=== PATIENT | male | born 1960 | race Caucasian/White ===

== ENCOUNTER 2019-04-19 06:49 | Inpatient (IN) | payer MEDICAID ==
[~2019-04-19] VITALS: Ht 170.2 cm; Wt 81.6 kg
[2019-04-19] MEDS ORDERED: ASPIRIN 81 MG TAB.CHEW PO ONE (07:00)
[2019-04-19] MEDS ORDERED: ONDANSETRON PF 4 MG/2 ML VIAL. IV ONE (07:15)
--- NOTE | 2019-04-19 07:18 | PHYS DOC ---
Adult General Chief Complaint Chief Complaint: chest pain HPI HPI 58-year-old male presents with chest pain. Patient states that it started about one hour ago. He was sitting in a car at that time. The pain is a central stabbing chest pain 10 out of 10 without radiation. The patient denies shortness of breath or diaphoresis. He denies nausea or vomiting. The patient has a cardiac history with 3 heart attacks, stents placed, and a STACY. He states that the defibrillator is not going off. It has not gone off recently. He is from [place] and all of his care is outside of our system. He takes several medications, but does not have a list with him. The patient was drinking alcohol last night with his daughter. Review of Systems Review of Systems Constitutional: Denies fever or chills [] Eyes: Denies change in visual acuity, redness, or eye pain [] HENT: Denies nasal congestion or sore throat [] Respiratory: Denies cough or shortness of breath [] Cardiovascular: No additional information not addressed in HPI [] GI: Denies abdominal pain, nausea, vomiting, bloody stools or diarrhea [] : Denies dysuria or hematuria [] Musculoskeletal: Denies back pain or joint pain [] Integument: Denies rash or skin lesions [] Neurologic: Denies headache, focal weakness or sensory changes [] Endocrine: Denies polyuria or polydipsia [] All other systems were reviewed and found to be within normal limits, except as documented in this note. Current Medications Current Medications Current Medications Medications (Trade) Dose Ordered Sig/[facility] Start Time Stop Time Status Last Admin Dose Admin Aspirin (Children'S Aspirin) 324 mg 1X ONCE 04/19/19 07:00 04/19/19 07:01 UNV Morphine Sulfate (Morphine 2mg Syringe) 2 mg 1X ONCE 04/19/19 07:15 04/19/19 07:16 UNV Nitroglycerin (Nitrostat) 0.4 mg PRN Q5MIN PRN 04/19/19 07:15 04/20/19 07:14 UNV Ondansetron HCl (Zofran) 4 mg 1X ONCE 04/19/19 07:15 04/19/19 07:16 UNV Allergies Allergies Allergies Coded Allergies Type Severity Reaction Last Updated Verified No Known Drug Allergies 04/19/19 No Physical Exam Physical Exam Constitutional: Well developed, well nourished, mild acute distress, non-toxic appearance. [] HENT: Normocephalic, atraumatic, bilateral external ears normal, oropharynx moist, no oral exudates, nose normal. [] Eyes: PERRLA, EOMI, conjunctiva normal, no discharge. [] Neck: Normal range of motion, no tenderness, supple, no stridor. [] Cardiovascular:Heart rate regular rhythm, no murmur [] Lungs & Thorax: Bilateral breath sounds clear to auscultation [] Abdomen: Bowel sounds normal, soft, no tenderness, no masses, no pulsatile masses. [] Skin: Abrasion of the left little finger, dorsal MIP joint area. [] Back: No tenderness, no CVA tenderness. [] Extremities: No tenderness, no cyanosis, no clubbing, ROM intact, no edema. [] Neurologic: Alert and oriented X 3, normal motor function, normal sensory function, no focal deficits noted. [] Psychologic: Affect normal, judgement normal, mood normal. [] EKG EKG Sinus rhythm, rate 84, right axis, downsloping T waves in lead 1. Q waves in V2 through V6. No ST elevations or depressions.[] Radiology/Procedures Radiology/Procedures [] Impressions: PORTABLE CHEST 1V Clinical Indication: Chest pain Comparison: None. Findings: There is left chest dual-chamber ICD. Main pulmonary arteries are upper limits of normal. The cardiomediastinal silhouette is normal. Lungs are clear. There is no pneumothorax. No pleural effusion is appreciated. No acute bone abnormality. IMPRESSION: No acute cardiopulmonary process. Electronically signed by: Christian Soto MD (04/19/2019 7:33 AM) [id number] DICTATED AND SIGNED BY: CHRISTIAN SOTO MD DATE: 04/19/19 0733 CC: COLEMAN JAMESON DO; ANNELIESE BAUTISTA MD ~ Course & Med Decision Making Course & Med Decision Making Pertinent Labs and Imaging studies reviewed. (See chart for details) The patient is tightening his muscles causing him to have a forward jerking-type motion about every 15-20 seconds. He states that this is due to the pain in his chest. I have ordered aspirin, nitroglycerin, and morphine. His EKG does show Q waves in V2 through V6. The patient's heart score is 5. The nitroglycerin lower the patient's blood pressure and reduced his pain to an 8/10. The 2 mg of morphine improved his pain a 5 out of 10. He while later, the patient was able to fall asleep. I informed him of his results and told him it would be best for him to be admitted for further trending of his troponins. He is in agreement with this plan. I discussed the patient with Dr. Kee and he has accepted the patient for admission. [] Dragon Disclaimer Dragon Disclaimer This electronic medical record was generated, in whole or in part, using a voice recognition dictation system. The HEART Score for CP Pts HEART Score for Chest Pain: HEART Score for Chest Pain Response (Comments) Value History Moderately Suspicious 1 ECG Nonspecific Repolarizatio 1 Age >45 - < 65 1 Risk Factors >3 Risk Factors or Hx CAD 2 Troponin < Normal Limit 0 Total 5 Risk Factors: Risk Factors: DM, Current or recent (<one month) smoker, HTN, HLP, family history of CAD, obesity. Risk Scores: Score 0 - 3: 2.5% MACE over next 6 weeks - Discharge Home Score 4 - 6: 20.3% MACE over next 6 weeks - Admit for Clinical Observation Score 7 - 10: 72.7% MACE over next 6 weeks - Early Invasive Strategies Departure Departure: Impression: Primary Impression: Chest pain Disposition: ADMITTED INPATIENT Admitting Physician: Mikael Kee Condition: STABLE Referrals: ANNELIESE BAUTISTA MD (PCP) Problem Qualifiers Primary Impression: Chest pain Chest pain type: precordial pain Qualified Codes: R07.2 - Precordial pain COLEMAN JAMESON DO Apr 19, 2019 07:18
[2019-04-19] MEDS: NITROGLYCERIN SUBLINGUAL 0.4 MG BOTTLE OF 25. SL PRN ×2 (07:20→07:40)
[2019-04-19] MEDS ORDERED: MORPHINE SULFATE 2 MG/ML DISP.SYRIN. IV ONE (07:30)
--- NOTE | 2019-04-19 07:36 | RAD ---
PORTABLE CHEST 1V Clinical Indication: Chest pain Comparison: None. Findings: There is left chest dual-chamber ICD. Main pulmonary arteries are upper limits of normal. The cardiomediastinal silhouette is normal. Lungs are clear. There is no pneumothorax. No pleural effusion is appreciated. No acute bone abnormality. IMPRESSION: No acute cardiopulmonary process. Electronically signed by: Christian Soto MD (04/19/2019 7:33 AM) [id number]
[2019-04-19 08:14] LABS: BASO % 1 % (0-3); EOS # 0.1 x10^3/uL (0.0-0.7); EOS % 1 % (0-3); HEMATOCRIT 45.5 % (39.0-53.0); HEMOGLOBIN 14.9 g/dL (13.0-17.5); LYMPH # 0.9 x10^3/uL (1.0-4.8); LYMPH % 12 % (24-48); MEAN CORPUSCULAR HEMOGLOBIN 27 pg (25-35); MEAN CORPUSCULAR HGB CONC 33 g/dL (31-37); MEAN CORPUSCULAR VOLUME 82 fL (79-100); MONO # 0.6 x10^3/uL (0.0-1.1); MONO % 8 % (0-9); NEUT % 79 % (31-73); PLATELET COUNT 165 x10^3/uL (140-400); RED BLOOD COUNT 5.52 x10^6/uL (4.30-5.70); RED CELL DISTRIBUTION WIDTH 16.9 % (11.5-14.5); WHITE BLOOD COUNT 7.6 x10^3/uL (4.0-11.0)
[2019-04-19 08:35] LABS: ALBUMIN 3.9 g/dL (3.4-5.0); ALBUMIN/GLOBULIN RATIO 1.1 (1.0-1.7); CALCIUM 8.8 mg/dL (8.5-10.1); CREATININE 1.1 mg/dL (0.7-1.3); GFR 69.2; POTASSIUM 3.5 mmol/L (3.5-5.1); TOTAL BILIRUBIN 0.4 mg/dL (0.2-1.0); TOTAL PROTEIN 7.4 g/dL (6.4-8.2)
--- NOTE | 2019-04-19 08:36 | RAD ---
FINGER(S) LEFT History: Abrasions. Rule out foreign body. Technique: AP view of the hand. 3 additional views of the fifth digit. Comparison: None. Findings: Normal alignment. No fracture. Bandage overlying the fifth digit. No radiopaque foreign bodies. Fifth digit soft tissue swelling. Impression: 1. No radiopaque foreign bodies. No acute osseous abnormality. Electronically signed by: Robles Steward DO (04/19/2019 8:33 AM) [id number]
[2019-04-19 08:41] LABS: AMPHETAMINE/METHAMPHETAMINE NEG (NEG); BARBITURATES NEG (NEG); BENZODIAZEPINES NEG (NEG); CANNABINOIDS NEG (NEG); COCAINE NEG (NEG); METHADONE NEG (NEG); OPIATES POS (NEG); PHENCYCLIDINE NEG (NEG)
[2019-04-19 08:46] LABS: BILIRUBIN,URINE NEG (NEG); CLARITY,URINE CLEAR; COLOR,URINE AMBER; GLUCOSE,URINE NEG (NEG); NITRITE,URINE NEG (NEG); RBC,URINE RARE /HPF (0-2); UROBILINOGEN,URINE 0.2 mg/dL (0.2 mg/dL)
[2019-04-19 08:47] LABS: BACTERIA,URINE FEW /HPF (0-FEW); GRANULAR CASTS,URINE FEW /HPF; HYALINE CASTS, URINE FEW /HPF; SQUAMOUS EPITHELIAL CELL,UR OCC /LPF
[2019-04-19] MEDS ORDERED: NITROGLYCERIN SUBLINGUAL 0.4 MG BOTTLE OF 25. SL PRN (09:00)
[2019-04-19] MEDS ORDERED: ONDANSETRON PF 4 MG/2 ML VIAL. IV PRN (09:00)
[2019-04-19] MEDS ORDERED: DIPHTH,PERTUSS(ACELL),TET TOX 0.5 ML DISP.SYRIN. VAX IM ONE (09:45)
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
--- NOTE | 2019-04-19 10:18 | EKG ---
[address] [address] Test Date: 2019-04-19 Test Time: 07:06:29 Pat Name: JYOTI MASONHuaBebe Department: Room: Gender: M Arch C[employer]ion [employer] Operator: : 1960 Requested By: COLEMAN JAMESON Order Number: [id number] Reading MD: Measurements Intervals [place] Loring Rate: 84 P: 0 GA: 166 QRS: 149 QRSD: 84 T: 49 QT: 344 QTc: 410 Interpretive Statements SINUS RHYTHM ABNORMAL RIGHT AXIS DEVIATION QRS(T) CONTOUR ABNORMALITY CONSISTENT WITH ANTERIOR INFARCT PROBABLY OLD CONSISTENT WITH HIGH LATERAL INFARCT PROBABLY OLD ABNORMAL ECG RI6.01 No previous ECG available for comparison
[2019-04-19 10:19] VITALS: BP 104/70
[2019-04-19 15:20] VITALS: BP 107/67
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
--- NOTE | 2019-04-19 16:24 | CARD ---
MR#: [id number] Date of Study: 04/19/2019 Ordering Physician: RYLAND ADAMSON, Referring Physician: RYLAND ADAMSON, Tech: Marian Shah APPROVED REPORT EXAM: Two-dimensional and M-mode echocardiogram with Doppler and color Doppler. Other Information Quality : GoodHR: 72bpm INDICATION Cardiac Disease: CAD Chest Pain Congestive Heart Failure Surgery/Intervention Pacemaker: Date: RISK FACTORS Hypertension Hyperlipidemia Smoking 2D DIMENSIONS RVDd2.9 (2.9-3.5cm)Left Atrium(2D)3.2 (1.6-4.0cm) IVSd1.0 (0.7-1.1cm)Aortic Root(2D)3.2 (2.0-3.7cm) LVDd5.5 (3.9-5.9cm)LVOT Diameter2.0 (1.8-2.4cm) PWd0.9 (0.7-1.1cm)LVDs3.4 (2.5-4.0cm) FS (%) 39.2 %SV104.0 ml LVEF(%)69.1 (>50%) Aortic Valve AoV Peak Colby.171.0cm/sAoV VTI32.4cm AO Peak GR.11.7mmHgLVOT Peak Colby.112.5cm/s LVOT VTI 20.11cmAO Mean GR.6mmHg WANDA (VMAX)2.30ia9MHO (VTI)2.05cm2 Mitral Valve MV E Gvbfestz52.3cm/sMV DECEL [id number] MV A Iojhuehu76.1cm/sE/A Ratio1.4 Pulmonary Valve PV Peak Iejvszii972.8cm/sPV Peak Grad.5mmHg Tricuspid Valve TR P. Xzqrstgs485ss/sRAP [id number] TR Peak Gr.42djDyFCGI14leXd Pulmonary Vein S1 Kefzasol71.9cm/sD2 Hxbugazw28.0cm/s LEFT VENTRICLE The left ventricle is normal size. There is borderline concentric left ventricular hypertrophy. The l eft ventricular systolic function is normal and the ejection fraction is within normal range. The Eje ction Fraction is 55-60%. Abnormal septal motion probably from pacemaker activation. Transmitral Dopp ler flow pattern is Grade II-pseudonormal filling dynamics. RIGHT VENTRICLE The right ventricle is mildly dilated. There is normal right ventricular wall thickness. Systolic fun ction is borderline reduced. There is a pacemaker lead in the right ventricle. ATRIA The left atrium size is normal. The right atrium size is normal. The interatrial septum is intact wit h no evidence for an atrial septal defect or patent foramen ovale as noted on 2-D or Doppler imaging. AORTIC VALVE The aortic valve is normal in structure and function. Doppler and Color Flow revealed no significant aortic regurgitation. There is no significant aortic valvular stenosis. MITRAL VALVE The mitral valve is normal in structure and function. There is no evidence of mitral valve prolapse. There is no mitral valve stenosis. Doppler and Color-flow revealed trace mitral regurgitation. TRICUSPID VALVE The tricuspid valve is normal in structure and function. Doppler and Color Flow revealed trace tricus pid regurgitation with an estimated PAP of 27 mmHg. There is no tricuspid valve stenosis. PULMONIC VALVE The pulmonary valve is normal in structure and function. Doppler and Color Flow revealed no pulmonic valvular regurgitation. GREAT VESSELS The aortic root is normal in size. The IVC is normal in size and collapses >50% with inspiration. PERICARDIAL EFFUSION There is no evidence of significant pericardial effusion. Critical Notification Critical Value: No <Conclusion> The left ventricular systolic function is normal. The Ejection Fraction is 55-60%. Abnormal septal motion probably from pacemaker activation. There is a pacemaker lead in RA/RV. Trace mitral regurgitation. Trace tricuspid regurgitation with an estimated PAP of 27 mmHg. There is no evidence of significant pericardial effusion. Signed by : Jarret Kang, Electronically Approved : 04/19/2019 16:24:26
[2019-04-19 18:47] VITALS: BP 110/70
[2019-04-19] MEDS ORDERED: APIX5TAB3 PO (21:04)
[2019-04-19] MEDS ORDERED: SPIR25TA5 PO (21:04)
[2019-04-19] MEDS ORDERED: MEXI150C PO (21:04)
[2019-04-19] MEDS ORDERED: FURO40TA4 PO (21:04)
[2019-04-19] MEDS ORDERED: PANT40TA5 PO (21:04)
[2019-04-19] MEDS ORDERED: SOTA80TA48 PO (21:04)
[2019-04-19] MEDS ORDERED: CLOP75TA57 PO (21:04)
[2019-04-19] MEDS ORDERED: SACU1TAB PO (21:04)
[2019-04-19] MEDS ORDERED: ATORVASTATIN CA80 MG PO (21:04)
[2019-04-19 21:52] VITALS: BP 123/80
[2019-04-19] MEDS: MORPHINE SULFATE 2 MG/ML DISP.SYRIN. IV PRN (21:58)
[2019-04-19 22:57] VITALS: BP 125/81
[2019-04-20 05:51] VITALS: BP 135/91
[2019-04-20] MEDS: MORPHINE SULFATE 2 MG/ML DISP.SYRIN. IV PRN ×2 (05:58→08:30)
[2019-04-20] MEDS: PANTOPRAZOLE 40 MG TABLET. PO SCH ×2 (07:38→18:11)
[2019-04-20] MEDS ORDERED: MORPHINE SULFATE 2 MG/ML DISP.SYRIN. IV PRN (07:45)
[2019-04-20] MEDS ORDERED: SOTALOL 80 MG TABLET. PO SCH (09:00)
[2019-04-20] MEDS ORDERED: FUROSEMIDE 20 MG TABLET PO SCH (09:00)
[2019-04-20] MEDS ORDERED: APIXABAN 5 MG TABLET. PO SCH (09:00)
[2019-04-20] MEDS ORDERED: CLOPIDOGREL BISULFATE 75 MG TABLET PO SCH (09:00)
[2019-04-20] MEDS ORDERED: SACUBITRIL/VALSARTAN 24/26MG TABLET. PO SCH (09:00)
[2019-04-20] MEDS ORDERED: SPIRONOLACTONE 25 MG TABLET PO SCH (09:00)
[2019-04-20] MEDS: MEXILETINE 150 MG CAPSULE PO SCH ×2 (09:57→15:18)
[2019-04-20 10:00] VITALS: BP 118/77
[2019-04-20 11:48] VITALS: BP 115/81
[2019-04-20 15:19] VITALS: BP 127/87
[2019-04-20] MEDS ORDERED: ATORVASTATIN CALCIUM 20 MG TABLET PO SCH (21:00)
== END 2019-04-20 19:00 | disposition home or self-care (01) | DRG 313 ==
LOC: ER 06:49 → 1 SOUTH 09:42
PROVIDERS: ADMIT Internal Medicine; ATTEND Internal Medicine
DX: R07.89 Other chest pain (principal); I50.22 Chronic systolic (congestive) heart failure; E78.5 Hyperlipidemia, unspecified; I11.0 Hypertensive heart disease with heart failure; I25.10 Atherosclerotic heart disease of native coronary artery without angina pectoris; F32.9 Major depressive disorder, single episode, unspecified; F41.9 Anxiety disorder, unspecified; I25.2 Old myocardial infarction; I25.5 Ischemic cardiomyopathy; I48.91 Unspecified atrial fibrillation; S40.812A Abrasion of left upper arm, initial encounter; X58.XXXA Exposure to other specified factors, initial encounter; Y93.89 Activity, other specified; Y92.89 Other specified places as the place of occurrence of the external cause; Y99.8 Other external cause status; Z87.891 Personal history of nicotine dependence; Z95.5 Presence of coronary angioplasty implant and graft; Z95.810 Presence of automatic (implantable) cardiac defibrillator
CPT/HCPCS: 36415; 71045; 73140; 80053; 80061; 80307; 81001; 83880; 84484; 85025; 90471; 90715; 93005; 93306; 96374; 96375; G0480; J2270; J2405; 99285-25